=== PATIENT | female | born 1960 | race Caucasian/White ===

== ENCOUNTER 2017-06-19 12:14 | Emergency (ER) | payer BC, OTHER ==
[2017-06-19 12:18] VITALS: BP 109/64; BMI 30.7
[2017-06-19] MEDS ORDERED: ZOFRAN INJ 4 MG VIAL IVP ONE (12:40)
[2017-06-19] MEDS ORDERED: DILAUDID INJ IVP ONE (12:41)
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
[2017-06-19] MEDS ORDERED: DILAUDID INJ ONE (12:46)
[2017-06-19] MEDS ORDERED: ZOFRAN INJ 4 MG VIAL ONE (12:46)
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
--- NOTE | 2017-06-19 13:51 | RAD ---
HISTORY: Right elbow pain. Study: 3 view series right elbow joint. Comparison: None Findings: No acute fracture, subluxation, or dislocation is identified. No lytic or bone forming lesions are s een. No osteochondral defects are observed. There is no evidence for significant degenerative arthro sis and or focal joint erosion. No elbow intra-articular loose bodies are seen. No joint effusion is seen. The radial head is unremarkable in its appearance. IMPRESSION: 1. Periarticular soft tissue swelling/edema without acute fracture or dislocation seen. Reported By:
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
== END 2017-06-19 15:06 | disposition home or self-care (01) ==
LOC: ER 12:33
DX: S20.20XA Contusion of thorax, unspecified, initial encounter (principal); S50.01XA Contusion of right elbow, initial encounter; S63.501A Unspecified sprain of right wrist, initial encounter; V86.99XA Unspecified occupant of other special all-terrain or other off-road motor vehicle injured in nontraffic accident, initial encounter; Y92.9 Unspecified place or not applicable
CPT/HCPCS: 71250; 73070; 73100; 74176; 96365; 96374; 99282; 99283; A4222; J1170; J2405

== ENCOUNTER 2017-11-06 09:05 | Day surgery (SDC) | payer BC ==
[2017-11-06] MEDS ORDERED: D5 LR 1000 ML 1,000 ML IV ONE (09:20)
[2017-11-06] MEDS ORDERED: DIPRIVAN VIAL 20 ML ONE ×2 (11:21→11:35)
[2017-11-06 13:01] VITALS: BP 119/57
== END 2017-11-06 12:15 | disposition home or self-care (01) ==
LOC: SURG1 09:05
PROVIDERS: ATTEND Internal Medicine Gastroenterology
PROC: 0DJD8ZZ Inspection of Lower Intestinal Tract, Via Natural or Artificial Opening Endoscopic (ICD-10-PCS; principal; 2017-11-06 13:00)
PROC: 0DBH8ZX Excision of Cecum, Via Natural or Artificial Opening Endoscopic, Diagnostic (ICD-10-PCS; principal; 2017-11-06 13:00)
PROC: 0DBK8ZX Excision of Ascending Colon, Via Natural or Artificial Opening Endoscopic, Diagnostic (ICD-10-PCS; principal; 2017-11-06 13:00)
PROC: 0DBL8ZX Excision of Transverse Colon, Via Natural or Artificial Opening Endoscopic, Diagnostic (ICD-10-PCS; principal; 2017-11-06 13:00)
DX: Z12.11 Encounter for screening for malignant neoplasm of colon (principal); Z86.010 Personal history of colon polyps; R19.4 Change in bowel habit; K63.5 Polyp of colon; K57.30 Diverticulosis of large intestine without perforation or abscess without bleeding; K64.0 First degree hemorrhoids; D12.0 Benign neoplasm of cecum
CPT/HCPCS: A4217; J3490; J7120